=== PATIENT | female | born 1965 | race Caucasian/White ===

== ENCOUNTER 2019-01-13 19:30 | Emergency (ER) | payer BC ==
[2019-01-13] MEDS: HYDROCODONE/APAP (5/325) TAB PO (22:17)
== END 2019-01-13 22:24 | disposition home or self-care (01) ==
LOC: FTE 19:30
DX: H60.91 Unspecified otitis externa, right ear (principal); I10 Essential (primary) hypertension; H66.91 Otitis media, unspecified, right ear
CPT/HCPCS: 99283; Z7502